=== PATIENT | male | born 1980 | race Caucasian/White ===

== ENCOUNTER 2019-06-28 13:12 | Emergency (ER) | payer SELFPAY ==
[2019-06-28 13:16] VITALS: BP 155/99
--- NOTE | 2019-06-28 13:34 | ER Document Report ---
HPI - HPI Patient complains to provider of: abscess Time Seen by Provider: 06/28/19 13:19 Onset: Last week Onset/Duration: Persistent, Worse Severity: Moderate Pain Level: 3 Context: This 38-year-old male presents the emergency department with complaints of abscess under his left axilla. Patient reports is been there for approximately a week and a half. Patient reports he did bust on Saturday and make a large amount of drainage. The area is still draining. Patient reports he has had this in the past but never sought treatment. Denies history of MRSA. Denies f ever vomiting diarrhea. Reports his made him come. Patient offered pain medication declined. Associated Symptoms: None Exacerbated by: Denies Relieved by: Denies Similar symptoms previously: Yes Recently seen / treated by doctor: No - CONSTITUTIONAL Constitutional: DENIES: Fever, Chills Past Medical History - General Information source: Patient - Social History Smoking Status: Current Every Day Smoker Cigarette use (# per day): Yes Frequency of alcohol use: Heavy Drug Abuse: None Lives with: Family Family History: None Patient has suicidal ideation: No Patient has homicidal ideation: No - Medical History Medical History: Negative Renal/ Medical History: Denies: Hx Peritoneal Dialysis Surgical Hx: Negative Vertical Provider Document - CONSTITUTIONAL Agree With Documented VS: Yes Exam Limitations: No Limitations General Appearance: WD/WN, No Apparent Distress - INFECTION CONTROL TRAVEL OUTSIDE OF THE [place] IN LAST 30 DAYS: No - HEENT HEENT: Atraumatic, Normocephalic - NECK Neck: Normal Inspection, Supple. negative: Lymphadenopathy-Left, Lymphadenopathy-Right - RESPIRATORY Respiratory: Breath Sounds Normal, No Respiratory Distress, Wheezing - CARDIOVASCULAR Cardiovascular: Regular Rate, Regular Rhythm - GI/ABDOMEN Gastrointestinal: Abdomen Soft, Abdomen Non-Tender - MUSCULOSKELETAL/EXTREMETIES Musculoskeletal/Extremeties: MAEW, FROM, Non-Tender - NEURO Level of Consciousness: Awake, Alert, Appropriate Motor/Sensory: No Motor Deficit - DERM Integumentary: Warm, Dry, Abscess Adult Front & Back Diagram: 1 - 3 cm abscess noted under his left axilla. Fluctuant. Course - Re-evaluation Re-evalutation: 06/28/19 13:34 This 38-year-old male with abscess under of his left axilla for the past week and a half that started draining on Saturday. Still draining. Complains of tenderness declines pain medication denies history of MRSA. Reports he has had this 1 time before. He has never followed up with a primary care provider. Denies fever vomiting diarrhea. 06/28/19 13:55 I&D completed. Patient tolerated but seemed like he was in pain. He was offered pain medication but declined. He was instructed on signs and symptoms of worsening infection. He was instructed on signs and symptoms of allergic reaction to the Bactrim. He was also instructed on the importance of quit smoking He was instructed in importance of follow-up with primary care provider return here for worsening symptoms he verbalized understanding to all instruction - Vital Signs Vital signs: Temp Pulse Resp BP Pulse Ox 98.4 F 105 H 15 155/99 H 94 06/28/19 13:15 06/28/19 13:15 06/28/19 13:15 06/28/19 13:15 06/28/19 13:15 Procedures - Incision and Drainage Left axillae Time completed: 13:53 Type: Simple Anesthetic type: 1% Lidocaine Blade size: 11 I&D procedure: Shurclens applied Incision Method: Incision made with needle Amount/type of drainage: very small whitish Notes: 06/28/19 13:54 Vertical incision with very small amount of white drainage obtained. Patient was very tense. Offered pain medication declined. Sent for culture. Discharge - Discharge Clinical Impression: Abscess Condition: Stable Disposition: HOME, SELF-CARE Instructions: Abscess ([facility]), Post Incision and Drainage, Trimethoprim-Sulfa ([facility]) Additional Instructions: *You have been treated for an abscess with incision and drainage *Take medication as prescribed *Monitor the site for signs of increasing infection such as increasing pain, redness, swelling, warmth *Keep the area clean *Follow up with a primary care provider within 5 days for recheck or return to the Emergency Department for worsening symptoms *Return to ED for signs of increasing infection, worsening condition, changes, needs Monitor your blood pressure. Your blood pressure was elevated today. This may be because you were anxious, in pain or because you need medication. It is important to follow up with your primary care provider for full evaluation. Prescriptions: Sulfamethoxazole/Trimethoprim [Bactrim Ds Tablet] 1 each PO BID #20 tablet Forms: Smoking Cessation Education, Elevated Blood Pressure
== END 2019-06-28 14:09 | disposition home or self-care (01) ==
LOC: ER 13:12
DX: L02.412 Cutaneous abscess of left axilla (principal); F17.210 Nicotine dependence, cigarettes, uncomplicated
CPT/HCPCS: 87070; 87075; 87077; 87186; 87205; 99283